=== PATIENT | female | born 1990 | race Caucasian/White ===

== ENCOUNTER 2023-11-04 11:11 | Outpatient (CLI) | payer OTHER | END 2023-11-04 11:13 | disposition home or self-care (01) | LOC: PRENATAL 11:11 | PROVIDERS: ATTEND Obstetrics & Gynecology Maternal & Fetal Medicine | DX: O36.80X0 Pregnancy with inconclusive fetal viability, not applicable or unspecified (principal); Z36.82 Encounter for antenatal screening for nuchal translucency; O34.219 Maternal care for unspecified type scar from previous cesarean delivery; O99.891 Other specified diseases and conditions complicating pregnancy; Z3A.12 12 weeks gestation of pregnancy ==

== ENCOUNTER 2023-12-28 11:33 | Outpatient (CLI) | payer OTHER | END 2023-12-28 11:34 | disposition home or self-care (01) | LOC: PRENATAL 11:33 | PROVIDERS: ATTEND Obstetrics & Gynecology Maternal & Fetal Medicine | DX: O35.3XX0 Maternal care for (suspected) damage to fetus from viral disease in mother, not applicable or unspecified (principal); O44.00 Complete placenta previa NOS or without hemorrhage, unspecified trimester; O34.219 Maternal care for unspecified type scar from previous cesarean delivery; O99.891 Other specified diseases and conditions complicating pregnancy; Z3A.20 20 weeks gestation of pregnancy ==

== ENCOUNTER 2024-03-07 17:42 | Outpatient (CLI) | payer OTHER ==
[2024-03-07 17:46] VITALS: BP 100/65
[2024-03-07] MEDS ORDERED: PRENATAL TABLE1 EAC1 PO (19:52)
[2024-03-07 20:14] VITALS: BP 96/59
[2024-03-07 22:04] VITALS: BP 96/59
== END 2024-03-07 21:53 | disposition home or self-care (01) ==
LOC: OBS/DEL 17:42
PROVIDERS: ATTEND General Practice
DX: O41.93X0 Disorder of amniotic fluid and membranes, unspecified, third trimester, not applicable or unspecified (principal); Z3A.30 30 weeks gestation of pregnancy

== ENCOUNTER 2024-04-04 10:35 | Outpatient (CLI) | payer OTHER ==
[~2024-04-04 10:35] MED LIST: PRENATAL TABLE1 EAC1 PO
== END 2024-04-04 10:36 | disposition home or self-care (01) ==
LOC: PRENATAL 10:35
PROVIDERS: ATTEND Obstetrics & Gynecology Maternal & Fetal Medicine
DX: O26.849 Uterine size-date discrepancy, unspecified trimester (principal); O34.219 Maternal care for unspecified type scar from previous cesarean delivery; Z3A.34 34 weeks gestation of pregnancy

== ENCOUNTER 2024-04-19 10:03 | Outpatient (CLI) | payer OTHER | END 2024-04-19 11:06 | disposition home or self-care (01) | LOC: NST 10:03 | PROVIDERS: ATTEND General Practice | DX: Z34.83 Encounter for supervision of other normal pregnancy, third trimester (principal) ==

== ENCOUNTER 2024-04-19 12:03 | Inpatient (IN) | payer OTHER ==
[~2024-04-19] VITALS: Ht 160 cm; Wt 64.4 kg
[2024-05-01 13:43] VITALS: BP 111/76
[2024-05-01] MEDS ORDERED: AMPICILLIN SODIUM 1,000 MG VIAL ONE ×2 (13:58→14:02)
[2024-05-01] MEDS ORDERED: AMPICILLIN SODIUM 2,000 MG VIAL IV ONE (14:30)
[2024-05-01] MEDS ORDERED: RINGERS SOLUTION,LACTATED 1,000 ML IV SCH (14:30)
[2024-05-01 15:23] VITALS: BP 95/60
[2024-05-01] MEDS ORDERED: AMPICILLIN SODIUM 1,000 MG VIAL IV SCH ×2 (17:00→20:00)
[2024-05-01 20:44] VITALS: BP 103/64
[2024-05-01 23:39] VITALS: BP 127/70
[2024-05-02] VITALS (7 sets, daily range): BP systolic 99–122; BP diastolic 56–75
[2024-05-02] MEDS ORDERED: FAMOTIDINE/PF 20 MG/2 ML VIAL IV SCH (09:00)
[2024-05-02] MEDS ORDERED: OXYTOCIN 500 ML IV SCH (09:15)
[2024-05-02] MEDS ORDERED: OXYTOCIN 20 UNITS/500ML RL PIGGYBAG IV ONE (09:54)
[2024-05-02] MEDS ORDERED: OXYTOCIN 20 UNITS/1000ML RL PIGGYBAG IV ONE (18:03)
[2024-05-02] MEDS ORDERED: ERYTHROMYCIN BASE OPHT 1GM EACH TUBE OP ONE (18:03)
[2024-05-02] MEDS ORDERED: CHLORHEXIDINE GLUCONATE 120 ML BOTTLE TOP ONE ×2 (18:03→19:30)
[2024-05-02] MEDS ORDERED: LIDOCAINE HCL 1% 10ML VIAL ONE (18:03)
[2024-05-02] MEDS ORDERED: KETOROLAC TROMETHAMINE 30 MG VIAL IV ONE (19:30)
[2024-05-02] MEDS ORDERED: IBUprofen 400 MG TABLET PO PRN (19:30)
[2024-05-02] MEDS ORDERED: OXYTOCIN 1,000 ML IV SCH (19:30)
[2024-05-02] MEDS ORDERED: KETOROLAC TROMETHAMINE 30 MG VIAL ONE (19:55)
[2024-05-03] VITALS: BP 90/60
[2024-05-03 01:42] LABS: HEMATOCRIT 32.2 % (36.0-45.00); HEMOGLOBIN 11.5 g/dL (12.0-15.00); MEAN CELL VOLUME 91.7 fL (80.00-100.00); MEAN CORPUSCULAR HEMOGLOBIN 32.8 pg (27.00-32.0); MEAN CORPUSCULAR HGB CONC 35.8 g/dl (32.0-36.0); PLATELET COUNT 227 K/uL (150-450); RED BLOOD COUNT 3.52 M/uL (4.00-6.00); RED CELL DISTRIBUTION WIDTH 12.7 % (11.5-14.5)
[2024-05-03 08:48] VITALS: BP 100/59
[2024-05-03] MEDS ORDERED: DOCUSATE SODIUM 100MG CAP PO SCH (09:00)
[2024-05-03] MEDS ORDERED: HYDROCORTISONE 2.5% 30 GM TUBE RECTAL SCH (10:47)
[2024-05-03 17:11] VITALS: BP 104/72
[2024-05-04 01:05] VITALS: BP 100/63
[2024-05-04 08:00] VITALS: BP 100/56
== END 2024-05-04 11:57 | disposition home or self-care (01) | DRG 807 ==
LOC: LDR 05-01 10:51 → OB/GYN 05-02 21:18 → LDR 05-09 11:44
PROVIDERS: ADMIT General Practice; ATTEND General Practice
PROC: 4A1HXCZ Monitoring of Products of Conception, Cardiac Rate, External Approach (ICD-10-PCS; 2024-05-01)
PROC: 10E0XZZ Delivery of Products of Conception, External Approach (ICD-10-PCS; principal; 2024-05-02)
PROC: 0KQM0ZZ Repair Perineum Muscle, Open Approach (ICD-10-PCS; 2024-05-02)
DX: O70.1 Second degree perineal laceration during delivery (principal); O99.824 Streptococcus B carrier state complicating childbirth; O69.81X0 Labor and delivery complicated by cord around neck, without compression, not applicable or unspecified; Z37.0 Single live birth; Z3A.38 38 weeks gestation of pregnancy; Z20.822 Contact with and (suspected) exposure to COVID-19

== ENCOUNTER 2024-05-01 11:27 | Outpatient (CLI) | payer OTHER ==
[2024-05-01 11:54] VITALS: BP 111/76
== END 2024-05-01 13:45 | disposition still patient (30) ==
LOC: OBS/DEL 11:27
PROVIDERS: ATTEND General Practice
DX: O26.893 Other specified pregnancy related conditions, third trimester (principal)